=== PATIENT | female | born 1975 | race Caucasian/White ===

== ENCOUNTER → 2020-12-08 | Outpatient (CLI) | payer OTHER ==
--- NOTE | 2020-12-10 23:18 | ECWPNPC ---
PATIENT NAME: KAL URRUTIA : 1975 GENDER: FEMALE VISIT DATE: 12/08/2020 DISCHARGE DATE: 12/08/20 1355 VISIT LOCKED DATE TIME: PHYSICIAN: ASPEN CORONA RESOURCE: ASPEN CORONA REASON FOR APPOINTMENT 1. BACK/NECK/HEADACHES HISTORY OF PRESENT ILLNESS DEPRESSION SCREENING: PHQ-9 LITTLE INTEREST OR PLEASURE IN DOING THINGSSEVERAL DAYS FEELING DOWN, DEPRESSED, OR HOPELESSNEARLY EVERY DAY TROUBLE FALLING OR STAYING ASLEEP, OR SLEEPING TOO MUCHSEVERAL DAYS FEELING TIRED OR HAVING LITTLE ENERGYNEARLY EVERY DAY POOR APPETITE OR OVEREATING SEVERAL DAYS FEELING BAD ABOUT YOURSELF-OR THAT YOU ARE A FAILURE OR HAVE LET YOURSELF OR YOUR FAMILY DOWN NEARLY EVERY DAY TROUBLE CONCENTRATING ON THINGS, SUCH READING THE NEWSPAPER OR WATCHING TELEVISION NOT AT ALL MOVING OR SPEAKING SO SLOWLY THAT OTHER PEOPLE COULD HAVE NOTICED. OR THE OPPOSITE- BEING SO FIDGETY OR RESTLESS THAT YOU HAVE BEEN MOVING AROUND A LOT MORE THAN USUALNOT AT ALL THOUGHTS THAT YOU WOULD BE BETTER OFF , OR OF HURTING YOURSELF IN SOME WAY?NEARLY EVERY DAY(CONSIDER SUICIDE ASSESSMENT RISK) TOTAL SCORE:15 INTERPRETATIONMODERATELY SEVERE DEPRESSION PHQ-2 (2015 EDITION) LITTLE INTEREST OR PLEASURE IN DOING THINGS?MORE THAN HALF THE DAYS FEELING DOWN, DEPRESSED, OR HOPELESS?NEARLY EVERY DAY TOTAL SCORE5 GENERAL: 45-YEAR-OLD FEMALE BEING REFERRED BY FOR NECK AND UPPER BACK PAIN. ACCOMPANIED IN THE EXAM ROOM WITH HER SIGNIFICANT OTHER. STATES THAT PATIENT DOES NOT REMEMBER THINGS SO IT WOULD BE HARD FOR HER TO RELAY INFORMATION ON TREATMENT PLAN. 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 PAIN RADIATES FROM UPPER BACK AND NECK INTO A HEADACHE. STATES HEADACHES ARE SEVERE AT TIMES. CURRENTLY USING CYCLOBENZAPRINE DAILY NECESSARY FOR PAIN. ALSO TAKING TRAMADOL IF NEEDED FOR SEVERE PAIN EPISODES BUT SHE RARELY TAKES THESE MEDICATIONS. PAIN IS AGGRAVATED BY RANGE OF JOINT MOTION OF HER NECK OR USE OF HER ARMS. REPORTS CONSTANT BURNING PAIN IN HER NECK AND UPPER BACK REGION. DENIES BOWEL OR BLADDER INCONTINENCE. REPORTING SOME WEIGHT GAIN OVER THE PAST FEW MONTHS BUT DENIES SUDDEN WEIGHT LOSS OR ILLNESS. - - -. FALL RISK SCREENING: SCREENING :NO FALLS REPORTED IN THE LAST YEAR PAIN SCREENING: PATIENT HAS A COMPLAINT OF ACUTE OR CHRONIC PAIN :YES LOCATION OF PAIN:HEAD, MID BACK INTENSITY OF PAIN (SCALE OF 1 TO 10):8 WHAT DOES YOUR PAIN FEEL LIKE:ACHING, TENDER DURATION:CONTINOUS, CONSTANT, ALL DAY PAIN IS INCREASED BY:ACTIVITIES PAIN IS DECREASED BY:USE OF PAIN MEDICATIONS NURSING NOTE: - - -. PAIN CENTER INTAKE QUESTIONS: DO YOU HAVE A HISTORY OF MRSA? :NO DO YOU TAKE A BLOOD THINNERS? :NO DO YOU HAVE ANY BLEEDING DISORDERS? :NO ANY NEW NUMBNESS OR WEAKNESS IN YOUR LEGS OR ARMS? :NO ANY PACEMAKER,DEFIBRILLATOR, OR DORSAL COLUMN STIMULATOR? :NO DO YOU HAVE ANY RASHES OR OPEN SORES? :NO ARE YOU ALLERGIC TO IV DYE? :NO ARE YOU DIABETIC? :NO ANY NEW PROBLEMS WITH YOUR MEDICATIONS? :NO HAVE YOU RECEIVED A VACCINE IN THE PAST 30 DAYS? :NO DO YOU PLAN TO RECEIVE A VACCINE IN THE NEXT 21 DAYS? :YES IF SO WHAT VACCINE AND WHEN? COVID 12/12/2020 DO YOU NEED ANY PRESCRIPTION? :NO DO YOU TAKE ANY IMMUNOSUPPRESSIVE MEDICATIONS? :NO CURRENT MEDICATIONS TAKING CYCLOBENZAPRINE HCL 10 MG TABLET 1 TABLET AT BEDTIME NEEDED ORALLY ONCE A DAY TAKING GABAPENTIN 600 MG TABLET 1 TABLET ORALLY ONCE A DAY TAKING GNP LANSOPRAZOLE 15 MG CAPSULE DELAYED RELEASE 1 CAPSULE BEFORE A MEAL ORALLY ONCE A DAY TAKING SERTRALINE HCL 100 MG TABLET 1 TABLET ORALLY ONCE A DAY TAKING TRAZODONE HCL 100 MG TABLET 1 TABLET AT BEDTIME ORALLY ONCE A DAY TAKING IBUPROFEN 800 MG TABLET 1 TABLET WITH FOOD OR MILK NEEDED ORALLY THREE TIMES A DAY TAKING ALBUTEROL SULFATE 108 (90 BASE) MCG/ACT AEROSOL POWDER BREATH ACTIVATED 1 PUFF NEEDED INHALATION EVERY 4 HRS TAKING TRAMADOL HCL 5 MG/ML SOLUTION 5 ML NEEDED ORALLY ONCE A DAY MEDICATION LIST REVIEWED AND RECONCILED WITH THE PATIENT PAST MEDICAL HISTORY ASTHMA DEPRESSION OVERANXIOUS DISODER CERVICAL CANCER DORSOPATH LOW BACK MUSCLE SPASM BACK ALLERGIES N.K.D.A. SURGICAL HISTORY CERVICAL CANCER COLON PROLAPSE FAMILY HISTORY FATHER: MOTHER: ALIVE SON(S): ALIVE 2 SON(S) - HEALTHY. SOCIAL HISTORY GENERAL: TOBACCO USE ARE YOU A:CURRENT SMOKER HOW MANY CIGARETTES A DAY DO YOU SMOKE?5 OR LESS PATIENT COUNSELED ON THE DANGERS OF TOBACCO USE AND URGED TO QUIT:12/08/2020 LATEX QUESTIONNAIRE LATEX ALLERGY : HAVE YOU EVER DEVELOPED ANY TYPE OF REACTION AFTER HANDLING LATEX PRODUCTS SUCH RUBBER GLOVES, CONDOMS, DIAPHRAGMS, BALLOONS, SOCKS, OR UNDERWEAR?NO LATEX ALLERGY : HAVE YOU EVER DEVELOPED ANY TYPE OF REACTION DURING OR AFTER DENTAL APPOINTMENT, VAGINAL/RECTAL EXAMINATION, SURGICAL PROCEDURE, OR ANY OTHER EXPOSURE?NO LATEX RISK : HAVE YOU EVER HAD ANY DIFFICULTY BREATHING OR HIVES AFTER EATING OR HANDLING ANY FRUITS, OR VEGETABLES; SUCH KIWI, BANANAS, STONE FRUITS, OR CHESTNUTSNO LATEX RISK : DO YOU HAVE A PREVIOUS PERSONAL HISTORY OF MORE THAN NINE SURGERIES, SPINA BIFIDA, OR REPEATED CATHERIZATIONS? NO LATEX RISK : ARE YOU FREQUENTLY EXPOSED TO LATEX PRODUCTS IN YOUR OCCUPATION?NO DATE ASKED : 12/08/2020 ALCOHOL USE: NO. RECREATIONAL DRUG USE DRUG USE?NO LANGUAGE LANGUAGES SPOKEN:CROATIAN LEARNING BARRIERS / SPECIAL NEEDS BARRIERS TO LEARNING?NO HEARING IMPAIRED?NO VISION IMPAIRED?YES :CORRECTIVE LENSES COGNITIVELY IMPAIRED?NO READINESS TO LEARN?YES LEARNING PREFERENCES?YES :DEMONSTRATION/VERBAL INSTRUCTION LEARNING CAPABILITIES PRESENT?YES EMOTIONAL BARRIERS?NO SPECIAL DEVICES?NO LOFT PATTERNMAKER NEEDED?NO DOMESTIC VIOLENCE DO YOU FEEL SAFE IN YOUR ENVIRONMENT?YES HOSPITALIZATION/MAJOR DIAGNOSTIC PROCEDURE SEE ABOVE REVIEW OF SYSTEMS CONSTITUTIONAL: ANY RECENT FEVER NO . CHILLS NO . WEIGHT CHANGE OF UNKNOWN REASONS NO . GASTROENTEROLOGY: NEW UNEXPLAINABLE CHANGES IN BOWEL CONTROL NO . CONSTIPATION NO . GENITOURINARY: ANY NEW CHANGE IN BLADDER CONTROL? NO . NEUROLOGY: NEW ONSET DIZZINESS OR NEUROLOGICAL CHANGES NOT MENTIONED NO . NEW NUMBNESS OR PAIN PATTERNS NOT MENTIONED AND PERTINENT TO TODAY'S VISIT NO . CARDIOLOGY: NEW CHEST PRESSURE NO . NEW CHEST PAIN NO . RESPIRATORY: UNEXPLAINABLE COUGH NO . NEW SHORTNESS OF BREATH NO . VITAL SIGNS WT 216.0 LBS, HT 52 IN, BMI 56.16 INDEX, BP 131/86 MM HG, HR 71 /MIN, RR 18 /MIN, TEMP 96.0 F, OXYGEN SAT % 98%, SAFE IN ENV? (Y/N) YES, NA INITIALS AW 1308T.YAMILE KOROMA. EXAMINATION GENERAL EXAMINATION: GENERALNO ACUTE DISTRESS, WELL NOURISHED AND HYDRATED, ACCOMPANIED IN EXAM ROOM WITH SIGNIFICANT OTHER. PSYCHAPPROPRIATE MOOD AND AFFECT . FACE:UNREMARKABLE. NECK:NO LYMPHADENOPATHY, SUPPLE. LUNGS:CLEAR TO AUSCULTATION BILATERALLY, NO WHEEZES, RHONCHI, RALES. HEART:NO MURMURS, REGULAR RATE AND RHYTHM. MUSCULOSKELETAL: TRIGGER POINTS: ELICITED OVER NECK REGION TRAPEZIUS AND MID SCAPULAR. INCREASE IN PAIN IS NOTED WITH RANGE OF JOINT MOTION OF THE NECK OR USE OF HER ARMS.. DIAGNOSTIC TESTS REVIEWEDCT SCAN OF THORACIC AND CERVICAL IS REVIEWED . ASSESSMENTS MYALGIA, OTHER SITE - M79.18 (PRIMARY) TREATMENT MYALGIA, OTHER SITE NOTES: TRIGGER POINT INJECTIONS BILATERAL NECK AND UPPER BACK WITHOUT STEROIDS. REFERRAL TO:PHYSICAL THERAPIST REASON:2XWK X 6 WKS,MASSAGE,MYOFASCIAL RELEASE PROCEDURE CODES FA211 ESTABILISHED PATIENT [facility] CHARGE DISPOSITION & COMMUNICATION FOLLOW UP POST PROCEDURE (REASON: FOLLOW-UP PT/TRIGGER POINT INJECTIONS BILATERAL NECK AND UPPER BACK WITHOUT STEROIDS) ELECTRONICALLY SIGNED BY FAITH CASTILLO ON 12/10/2020 AT 08:00 PM EST DISCLAIMER : THIS IS A VISIT SUMMARY EXTRACTED FROM THE [employer] CHART. IT IS NOT A COPY OF THE [employer] PROGRESS NOTE. DEEJAY
== END ==
LOC: M PAIN 13:00
PROVIDERS: ATTEND Nurse Practitioner Family
DX: M79.18 Myalgia, other site (principal); J45.909 Unspecified asthma, uncomplicated; F32.9 Major depressive disorder, single episode, unspecified; F17.210 Nicotine dependence, cigarettes, uncomplicated; Z79.891 Long term (current) use of opiate analgesic; Z79.899 Other long term (current) drug therapy

== ENCOUNTER → 2020-12-24 | Outpatient (CLI) | payer OTHER | LOC: M LABSMTC 11:06 | PROVIDERS: ATTEND Anesthesiology | DX: Z20.822 Contact with and (suspected) exposure to COVID-19 (principal) ==

== ENCOUNTER → 2020-12-29 | Outpatient (CLI) | payer OTHER ==
[~2020-12-29] MED LIST: BUPIVACAINE HCL 0.25% 10ML VIAL As Ordered ONE; BUPIVACAINE HCL 0.25% 30ML VIAL As Ordered ONE; TRIAMCINOLONE ACETONIDE SUSP 40 MG/ML VIAL (J3301) As Ordered ONE; diazePAM 5MG TABLET As Ordered ONE
--- NOTE | 2021-01-03 02:06 | ECWPNPC ---
PATIENT NAME: KAL URRUTIA : 1975 GENDER: FEMALE VISIT DATE: 12/29/2020 DISCHARGE DATE: 12/29/20 1027 VISIT LOCKED DATE TIME: PHYSICIAN: MARY LOMBARDO MD RESOURCE: MARY LOMBARDO MD REASON FOR APPOINTMENT 1. TRIGGER POINT INJECTIONS BILATERAL NECK AND BILATERAL THORACIC HISTORY OF PRESENT ILLNESS GENERAL: -. FALL RISK SCREENING: SCREENING : NO FALLS REPORTED IN THE LAST YEAR. PAIN SCREENING: PATIENT HAS A COMPLAINT OF ACUTE OR CHRONIC PAIN :YES LOCATION OF PAIN:NECK, BOTH SHOULDERS, MID BACK INTENSITY OF PAIN (SCALE OF 1 TO 10):8 WHAT DOES YOUR PAIN FEEL LIKE:ACHING, BURNING, CONTINOUS, SHARP, STABBING, TENDER, THROBBING, SORE, SHOOTING OCC. SHARP, STABBING, SHOOTING DURATION:CONTINOUS, CONSTANT DOESN'T WAKE HER AT NIGHT BECAUSE SHE TAKES SO MANY MEDS THAT THE KNOCK HER OUT PAIN IS INCREASED BY:ACTIVITIES, PROLONGED STANDING PROLONGED SITTING AND PROLONGED LYING PAIN IS DECREASED BY:USE OF PAIN MEDICATIONS HEAT, REST AND IF SEVERE SHE TAKES A TRAMADOL PAIN HAS INTERFERED WITH THE FOLLOWING: EVERYTHING NURSING NOTE: -. PAIN CENTER INTAKE QUESTIONS: DO YOU HAVE A HISTORY OF MRSA? :NO DO YOU TAKE A BLOOD THINNERS? :NO DO YOU HAVE ANY BLEEDING DISORDERS? :NO ANY NEW NUMBNESS OR WEAKNESS IN YOUR LEGS OR ARMS? :NO ANY PACEMAKER,DEFIBRILLATOR, OR DORSAL COLUMN STIMULATOR? :NO DO YOU HAVE ANY RASHES OR OPEN SORES? :NO ARE YOU ALLERGIC TO IV DYE? :NO ARE YOU DIABETIC? :NO ANY NEW PROBLEMS WITH YOUR MEDICATIONS? :NO HAVE YOU RECEIVED A VACCINE IN THE PAST 30 DAYS? :NO DO YOU PLAN TO RECEIVE A VACCINE IN THE NEXT 21 DAYS? :NO DO YOU TAKE ANY IMMUNOSUPPRESSIVE MEDICATIONS? :NO ANY HISTORY OF SEIZURES? :NO ANY HISTORY OF CARDIAC ISSUES OR EVENTS? :NO DO YOU HAVE ANY KIDNEY OR LIVER DISEASE? :NO DO YOU HAVE SLEEP APNEA? :NO ANY RECENT HEAD INJURY? :NO DO YOU HAVE ANY NEW INFECTIONS? :NO IS THERE A CHANCE YOU COULD BE ? :NO ARE YOU BREAST FEEDING? :NO WHEN DID YOU LAST EAT? : 12/28/20 1800 WHEN DID YOU LAST DRINK? : 0715 WHAT DID YOU LAST DRINK? : ELOINA KIRA NAME OF PERSON DRIVING YOU HOME? : TJ DO YOU HAVE ANY OTHER QUESTIONS OR CONCERNS? : NONE CURRENT MEDICATIONS TAKING CYCLOBENZAPRINE HCL 10 MG TABLET 1 TABLET AT BEDTIME NEEDED ORALLY ONCE A DAY, NOTES: 629 TAKING GABAPENTIN 800 MG TABLET 1 TABLET ORALLY ONCE A DAY TAKING GNP LANSOPRAZOLE 15 MG CAPSULE DELAYED RELEASE 1 CAPSULE BEFORE A MEAL ORALLY ONCE A DAY TAKING SERTRALINE HCL 100 MG TABLET 1 TABLET ORALLY ONCE A DAY TAKING TRAZODONE HCL 100 MG TABLET 1 TABLET AT BEDTIME ORALLY ONCE A DAY, NOTES: 12/28/20 2200 TAKING IBUPROFEN 800 MG TABLET 1 TABLET WITH FOOD OR MILK NEEDED ORALLY THREE TIMES A DAY, NOTES: 629 TAKING ALBUTEROL SULFATE 108 (90 BASE) MCG/ACT AEROSOL POWDER BREATH ACTIVATED 1 PUFF NEEDED INHALATION EVERY 4 HRS TAKING TRAMADOL HCL 5 MG/ML SOLUTION 5 ML NEEDED ORALLY ONCE A DAY, NOTES: OVER A WEEK MEDICATION LIST REVIEWED AND RECONCILED WITH THE PATIENT PAST MEDICAL HISTORY ASTHMA DEPRESSION OVERANXIOUS DISODER CERVICAL CANCER DORSOPATH LOW BACK MUSCLE SPASM BACK NECK AND SHOULDER PAIN ALLERGIES N.K.D.A. SURGICAL HISTORY CERVICAL CANCER COLON PROLAPSE SOCIAL HISTORY GENERAL: TOBACCO USE ARE YOU A:CURRENT SMOKER ARE YOU INTERESTED IN QUITTING?NOT READY TO QUIT HOW MANY CIGARETTES A DAY DO YOU SMOKE?- PATIENT COUNSELED ON THE DANGERS OF TOBACCO USE AND URGED TO QUIT:12/28/2020 LATEX QUESTIONNAIRE LATEX ALLERGY : HAVE YOU EVER DEVELOPED ANY TYPE OF REACTION AFTER HANDLING LATEX PRODUCTS SUCH RUBBER GLOVES, CONDOMS, DIAPHRAGMS, BALLOONS, SOCKS, OR UNDERWEAR?NO LATEX ALLERGY : HAVE YOU EVER DEVELOPED ANY TYPE OF REACTION DURING OR AFTER DENTAL APPOINTMENT, VAGINAL/RECTAL EXAMINATION, SURGICAL PROCEDURE, OR ANY OTHER EXPOSURE?NO LATEX RISK : HAVE YOU EVER HAD ANY DIFFICULTY BREATHING OR HIVES AFTER EATING OR HANDLING ANY FRUITS, OR VEGETABLES; SUCH KIWI, BANANAS, STONE FRUITS, OR CHESTNUTSNO LATEX RISK : DO YOU HAVE A PREVIOUS PERSONAL HISTORY OF MORE THAN NINE SURGERIES, SPINA BIFIDA, OR REPEATED CATHERIZATIONS? NO LATEX RISK : ARE YOU FREQUENTLY EXPOSED TO LATEX PRODUCTS IN YOUR OCCUPATION?NO DATE ASKED : 12/28/2020 ALCOHOL USE: NO. ALCOHOL SCREENING DID YOU HAVE A DRINK CONTAINING ALCOHOL IN THE PAST YEAR?YES HOW OFTEN DID YOU HAVE A DRINK CONTAINING ALCOHOL IN THE PAST YEAR?MONTHLY OR LESS (1 POINT) HOW MANY DRINKS DID YOU HAVE ON A TYPICAL DAY WHEN YOU WERE DRINKING IN THE PAST YEAR?1 OR 2 (0 POINTS) HOW OFTEN DID YOU HAVE SIX OR MORE DRINKS ON ONE OCCASION IN THE PAST YEAR?NEVER (0 POINTS) POINTS1 INTERPRETATIONNEGATIVE RECREATIONAL DRUG USE DRUG USE?NO LANGUAGE LANGUAGES SPOKEN:ITALIAN EDUCATION LEVEL OF EDUCATION:HIGH SCHOOL LEARNING BARRIERS / SPECIAL NEEDS BARRIERS TO LEARNING?YES COMMENTS SOMETIMES HAS TROUBLE REMEMBERING THINGS HEARING IMPAIRED?NO VISION IMPAIRED?YES :CORRECTIVE LENSES COGNITIVELY IMPAIRED?NO READINESS TO LEARN?YES LEARNING PREFERENCES?YES :DEMONSTRATION/VERBAL INSTRUCTION LEARNING CAPABILITIES PRESENT?YES EMOTIONAL BARRIERS?NO SPECIAL DEVICES?NO LABORATORY GENETICIST NEEDED?NO DOMESTIC VIOLENCE DO YOU FEEL SAFE IN YOUR ENVIRONMENT?YES ADVANCE DIRECTIVE ADVANCE DIRECTIVE DISCUSSED WITH PATIENT: HAS LIVING WILL, DECLINES INFORMATION ON HCP AT THIS TIME HOSPITALIZATION/MAJOR DIAGNOSTIC PROCEDURE SEE ABOVE VITAL SIGNS WT 214.8 LBS, HT 52 IN, BMI 55.84 INDEX, BP 120/74 MM HG, HR 85 /MIN, RR 18 /MIN, TEMP 97.3 F, OXYGEN SAT % 97%, SAFE IN ENV? (Y/N) YES, NA INITIALS SC 09:26, REVIEWED BY: APA. FREDRICK RN. EXAMINATION GENERAL EXAMINATION: THE PATIENT IS ALERT, ORIENTED TIMES THREE AND COOPERATIVE. LUNGS ARE CLEAR TO AUSCULTATION. HEART SHOWS REGULAR RHYTHM, NO MURMURS AND NO GALLOPS. ASSESSMENTS MYALGIA, OTHER SITE - M79.18 (PRIMARY) TREATMENT MYALGIA, OTHER SITE MEDICATION: VALIUM TAB 5MG ORALLY (DIAZEPAM)KARINE CEDENO 12/29/2020 9:34:38 AM > VERIFIED TREVOR ALCALA 12/29/2020 9:36:12 AM > ADMINISTERED COMPLETION OF PROCEDURAL VISIT WHEN MEETS CRITERIAPETREVOR BARGER 12/29/2020 10:27:12 AM > CRITERIA MET OTHERS NOTES: 12/28/20 1203 PRE-PROCEDURE CALL COMPLETED. Verna ORTIZ RN. PROCEDURES PAIN NURSING RECORD PROCEDURE IN ROOM 0910, PHYSICIAN IN ROOM 1004, START 1008, FINISH 1012, PHYSICIAN OUT OF ROOM 1014, OUT OF ROOM 1027, ECG N/A, PATIENT SHIELDED N/A, SAFETY STRAP N/A, PREP ALCOHOL DR. LOMBARDO, DRESSING TEGADERM Verna ALCALA, DWAINE LOC: TREVOR ALCALA 12/29/2020 10:09:46 AM > , 1. ALERT, ORIENTED RESP: TREVOR ALCALA 12/29/2020 10:09:49 AM > , 1. REGULAR, NO DYSPNEA COLOR: TREVOR ALCALA 12/29/2020 10:09:52 AM > , 1. PINK SKIN: TREVOR ALCALA 12/29/2020 10:09:55 AM > , 1. WARM, DRY POSITION: TREVOR ALCALA 12/29/2020 10:10:04 AM > , 5. SITTING VITALS: TREVOR ALCALA 12/29/2020 10:24:56 AM > 121/73, 83, 18, 94% COMPLETION OF PROCEDURE APPOINTMENT: POST PAIN 3, DRESSING SITE DRY AND INTACT, IV N/A, GAIT STEADY, TEACHING COMPLETED, PATIENT ACKNOWLEDGES UNDERSTANDING YES, PROCEDURE APPOINTMENT COMPLETED AT 1027 BY: Verna ALCALA RN PN TRIGGER POINT INJECTION WITH STEROIDS PRE PROCEDURE DIAGNOSIS 1. MYALGIA 2. PAIN AT BILATERAL NECK AREA AND BILATERAL THORACIC AREA POST PROCEDURE DIAGNOSIS 1. MYALGIA 2. PAIN AT BILATERAL NECK AREA AND BILATERAL THORACIC AREA PROCEDURE TRIGGER POINT INJECTION AT BILATERAL NECK AREA AND BILATERAL THORACIC AREA SURGEON DR. MARY LOMBARDO TIMBER TREATMENT PLANT OPERATOR NONE ANESTHESIA LOCAL PRE PROCEDURE NOTE THE PATIENT HAS A HISTORY OF CHRONIC PAIN AT THE RIGHT AND LEFT NECK AREA AND RIGHT AND LEFT THORACIC AREA. I EVALUATED THE PATIENT AND REVIEWED THE CHART. THERE IS EVIDENCE OF BANDS OF TISSUE WITH RESTRICTION OF MOVEMENT AND PRESENCE OF TRIGGER POINT AT THE RIGHT AND LEFT NECK AREA AND RIGHT AND LEFT THORACIC AREA. I WENT OVER THE RISKS, ALTERNATIVES, AND BENEFITS ASSOCIATED WITH THIS PROCEDURE. THE PATIENT WOULD LIKE TO PROCEED AND GIVE CONSENT TO PERFORMED THE PROCEDURE. THE PATIENT DENIES UNEXPLAINABLE WEIGHT LOSS, FEVER, CHILLS, OR NEW CHANGES IN URINARY OR BOWEL CONTROL. THE PATIENT IS COVID-19 NEGATIVE DESCRIPTION OF PROCEDURE THE PATIENT WAS BROUGHT TO THE PROCEDURE ROOM AND PLACED IN THE SITTING POSITION. THE AREA WAS CLEANED WITH ALCOHOL. THE PROCEDURE WAS DONE USING ASEPTIC STERILE TECHNIQUE. A TIMEOUT WAS PERFORMED WHERE THE CONSENTED SITE WAS VERIFIED WITH EVERYONE IN THE ROOM. USING A 25-GAUGE NEEDLE, TRIGGER POINTS WERE INJECTED AT THE RIGHT AND LEFT NECK AREA AND RIGHT AND LEFT THORACIC AREA WITH A TOTAL OF 40 ML OF BUPIVACAINE 0.25% AND KENALOG 40 MG. THE MEDICATIONS WERE VERIFIED WITH THE NURSE. THERE WAS NO EVIDENCE OF BLOOD OR PARESTHESIA DURING THE PROCEDURE. THE PATIENT WAS SENT TO THE RECOVERY ROOM. THE PATIENT WAS MOVING THE EXTREMITIES AND DOING WELL. THERE WERE NO COMPLICATIONS DURING THE PROCEDURE. ESTIMATED BLOOD LOSS WAS LESS THAN 5 ML POST PROCEDURE NOTE THE PROCEDURE DONE WAS DISCUSSED WITH THE PATIENT. THE PATIENT WILL BE SEEN IN A FOLLOW UP IN THE NEXT FEW WEEKS. I AM LOOKING FOR LONG LASTING PAIN RELIEF FOR THE PATIENT WITH THIS INTERVENTION. INSTRUCTIONS WERE GIVEN, QUESTIONS WERE ANSWERED, AND THE PATIENT EXPRESSED UNDERSTANDING AND AGREES WITH THE PLAN. I, HUSSEIN ZAPATA, DOCUMENTED THE ABOVE INFORMATION ACTING A SCRIBE FOR DR. LOMBARDO. I HAVE REVIEWED THE ABOVE DOCUMENT, WRITTEN BY HUSSEIN ZAPATA, LABORER ORCHARD, AND I VERIFY THAT IT IS ACCURATE PROCEDURE CODES 88302 INJECT TRIGGER POINTS 3/> DISPOSITION & COMMUNICATION FOLLOW UP FOLLOW UP WITH CHILD CARE ASSISTANT (REASON: POST TRIGGER POINT INJECTIONS BILATERAL NECK AND BILATERAL THORACIC ) ELECTRONICALLY SIGNED BY MARY LOMBARDO MD, ON 01/02/2021 AT 11:40 AM EDT DISCLAIMER : THIS IS A VISIT SUMMARY EXTRACTED FROM THE [employer] CHART. IT IS NOT A COPY OF THE [employer] PROGRESS NOTE. DEEJAY
== END ==
LOC: M PAIN 09:15
PROVIDERS: ATTEND Anesthesiology
DX: M79.18 Myalgia, other site (principal); J45.909 Unspecified asthma, uncomplicated; F32.9 Major depressive disorder, single episode, unspecified; F17.210 Nicotine dependence, cigarettes, uncomplicated; Z79.891 Long term (current) use of opiate analgesic; Z79.899 Other long term (current) drug therapy
CPT/HCPCS: 20553; J3301

== ENCOUNTER → 2021-01-12 | Outpatient (CLI) | payer OTHER ==
--- NOTE | 2021-01-18 04:59 | ECWPNPC ---
PATIENT NAME: KAL URRUTIA : 1975 GENDER: FEMALE VISIT DATE: 01/12/2021 DISCHARGE DATE: 01/12/21 1444 VISIT LOCKED DATE TIME: PHYSICIAN: ASPEN COROAN RESOURCE: ASPEN CORONA REASON FOR APPOINTMENT 1. POST TRIGGER POINT INJECTIONS BILATERAL NECK AND UPPER BACK W/O STEROID HISTORY OF PRESENT ILLNESS GENERAL: HERE FOR POST PROCEDURE FOLLOW-UP. HAD BILATERAL NECK AND THORACIC TRIGGER POINT INJECTIONS ON 12/29/2020. REPORTING MARKED REDUCTION IN PAIN BUT IT ONLY LASTED FOR 2 DAYS POSTPROCEDURE. CONTINUES TO HAVE HIGH LEVELS OF PAIN AND STIFFNESS IN HER NECK AND UPPER BACK REGION. DISCUSSED PHYSICAL THERAPY FOR MYOFASCIAL RELEASE. -. FALL RISK SCREENING: SCREENING : NO FALLS REPORTED IN THE LAST YEAR. PAIN SCREENING: PATIENT HAS A COMPLAINT OF ACUTE OR CHRONIC PAIN :YES LOCATION OF PAIN:NECK, MID BACK INTENSITY OF PAIN (SCALE OF 1 TO 10):8 WHAT DOES YOUR PAIN FEEL LIKE:ACHING, SHOOTING DURATION:CONTINOUS, CONSTANT, ALL DAY PAIN IS INCREASED BY:ACTIVITIES PAIN IS DECREASED BY:OTHERS HEAT NURSING NOTE: -. PAIN CENTER INTAKE QUESTIONS: DO YOU HAVE A HISTORY OF MRSA? :NO DO YOU TAKE A BLOOD THINNERS? :NO DO YOU HAVE ANY BLEEDING DISORDERS? :NO ANY NEW NUMBNESS OR WEAKNESS IN YOUR LEGS OR ARMS? :NO ANY PACEMAKER,DEFIBRILLATOR, OR DORSAL COLUMN STIMULATOR? :NO DO YOU HAVE ANY RASHES OR OPEN SORES? :NO ARE YOU ALLERGIC TO IV DYE? :NO ARE YOU DIABETIC? :NO ANY NEW PROBLEMS WITH YOUR MEDICATIONS? :NO HAVE YOU RECEIVED A VACCINE IN THE PAST 30 DAYS? :NO DO YOU PLAN TO RECEIVE A VACCINE IN THE NEXT 21 DAYS? :NO DO YOU NEED ANY PRESCRIPTION? :NO DO YOU TAKE ANY IMMUNOSUPPRESSIVE MEDICATIONS? :NO CURRENT MEDICATIONS TAKING CYCLOBENZAPRINE HCL 10 MG TABLET 1 TABLET AT BEDTIME NEEDED ORALLY ONCE A DAY TAKING GABAPENTIN 800 MG TABLET 1 TABLET ORALLY ONCE A DAY TAKING GNP LANSOPRAZOLE 15 MG CAPSULE DELAYED RELEASE 1 CAPSULE BEFORE A MEAL ORALLY ONCE A DAY TAKING SERTRALINE HCL 100 MG TABLET 1 TABLET ORALLY ONCE A DAY TAKING TRAZODONE HCL 100 MG TABLET 1 TABLET AT BEDTIME ORALLY ONCE A DAY TAKING IBUPROFEN 800 MG TABLET 1 TABLET WITH FOOD OR MILK NEEDED ORALLY THREE TIMES A DAY TAKING ALBUTEROL SULFATE 108 (90 BASE) MCG/ACT AEROSOL POWDER BREATH ACTIVATED 1 PUFF NEEDED INHALATION EVERY 4 HRS TAKING TRAMADOL HCL 5 MG/ML SOLUTION 5 ML NEEDED ORALLY ONCE A DAY, NOTES: OVER A WEEK MEDICATION LIST REVIEWED AND RECONCILED WITH THE PATIENT PAST MEDICAL HISTORY ASTHMA DEPRESSION OVERANXIOUS DISODER CERVICAL CANCER DORSOPATH LOW BACK MUSCLE SPASM BACK NECK AND SHOULDER PAIN ALLERGIES N.K.D.A. SOCIAL HISTORY GENERAL: TOBACCO USE ARE YOU A:CURRENT SMOKER HOW MANY CIGARETTES A DAY DO YOU SMOKE?11-20 ARE YOU INTERESTED IN QUITTING?NOT READY TO QUIT PATIENT COUNSELED ON THE DANGERS OF TOBACCO USE AND URGED TO QUIT:12/28/2020 LATEX QUESTIONNAIRE LATEX ALLERGY : HAVE YOU EVER DEVELOPED ANY TYPE OF REACTION AFTER HANDLING LATEX PRODUCTS SUCH RUBBER GLOVES, CONDOMS, DIAPHRAGMS, BALLOONS, SOCKS, OR UNDERWEAR?NO LATEX ALLERGY : HAVE YOU EVER DEVELOPED ANY TYPE OF REACTION DURING OR AFTER DENTAL APPOINTMENT, VAGINAL/RECTAL EXAMINATION, SURGICAL PROCEDURE, OR ANY OTHER EXPOSURE?NO LATEX RISK : HAVE YOU EVER HAD ANY DIFFICULTY BREATHING OR HIVES AFTER EATING OR HANDLING ANY FRUITS, OR VEGETABLES; SUCH KIWI, BANANAS, STONE FRUITS, OR CHESTNUTSNO LATEX RISK : DO YOU HAVE A PREVIOUS PERSONAL HISTORY OF MORE THAN NINE SURGERIES, SPINA BIFIDA, OR REPEATED CATHERIZATIONS? NO LATEX RISK : ARE YOU FREQUENTLY EXPOSED TO LATEX PRODUCTS IN YOUR OCCUPATION?NO DATE ASKED : 01/12/2021 ALCOHOL USE: NO. ALCOHOL SCREENING DID YOU HAVE A DRINK CONTAINING ALCOHOL IN THE PAST YEAR?YES HOW OFTEN DID YOU HAVE SIX OR MORE DRINKS ON ONE OCCASION IN THE PAST YEAR?NEVER (0 POINTS) HOW MANY DRINKS DID YOU HAVE ON A TYPICAL DAY WHEN YOU WERE DRINKING IN THE PAST YEAR?1 OR 2 (0 POINTS) HOW OFTEN DID YOU HAVE A DRINK CONTAINING ALCOHOL IN THE PAST YEAR?MONTHLY OR LESS (1 POINT) POINTS1 INTERPRETATIONNEGATIVE RECREATIONAL DRUG USE DRUG USE?NO LANGUAGE LANGUAGES SPOKEN:AMHARIC EDUCATION LEVEL OF EDUCATION:HIGH SCHOOL LEARNING BARRIERS / SPECIAL NEEDS CHANGE FROM LAST VISIT?NO BARRIERS TO LEARNING?YES COMMENTS SOMETIMES HAS TROUBLE REMEMBERING THINGS HEARING IMPAIRED?NO VISION IMPAIRED?YES :CORRECTIVE LENSES COGNITIVELY IMPAIRED?NO READINESS TO LEARN?YES LEARNING PREFERENCES?YES :DEMONSTRATION/VERBAL INSTRUCTION LEARNING CAPABILITIES PRESENT?YES EMOTIONAL BARRIERS?NO SPECIAL DEVICES?NO SCHEDULE MANAGER NEEDED?NO DOMESTIC VIOLENCE DO YOU FEEL SAFE IN YOUR ENVIRONMENT?YES ADVANCE DIRECTIVE ADVANCE DIRECTIVE DISCUSSED WITH PATIENT: HAS LIVING WILL, DECLINES INFORMATION ON HCP AT THIS TIME REVIEW OF SYSTEMS CONSTITUTIONAL: ANY RECENT FEVER NO . CHILLS NO . WEIGHT CHANGE OF UNKNOWN REASONS NO . GASTROENTEROLOGY: NEW UNEXPLAINABLE CHANGES IN BOWEL CONTROL NO . CONSTIPATION NO . GENITOURINARY: ANY NEW CHANGE IN BLADDER CONTROL? NO . NEUROLOGY: NEW ONSET DIZZINESS OR NEUROLOGICAL CHANGES NOT MENTIONED NO . NEW NUMBNESS OR PAIN PATTERNS NOT MENTIONED AND PERTINENT TO TODAY'S VISIT NO . CARDIOLOGY: NEW CHEST PRESSURE NO . PATIENT DENIES NO . RESPIRATORY: UNEXPLAINABLE COUGH NO . NEW SHORTNESS OF BREATH NO . VITAL SIGNS WT 207 LBS, HT 52 IN, BMI 53.82 INDEX, BP 118/72 MM HG, HR 71 /MIN, RR 18 /MIN, TEMP 97.2 F, OXYGEN SAT % 95%, SAFE IN ENV? (Y/N) YEST.YAMILE KOROMA. EXAMINATION GENERAL EXAMINATION: GENERALNO ACUTE DISTRESS, WELL NOURISHED AND HYDRATED, ACCOMPANIED IN EXAM ROOM WITH SIGNIFICANT OTHER. PSYCHAPPROPRIATE MOOD AND AFFECT . FACE:UNREMARKABLE. NECK:NO LYMPHADENOPATHY, SUPPLE. LUNGS:CLEAR TO AUSCULTATION BILATERALLY, NO WHEEZES, RHONCHI, RALES. HEART:NO MURMURS, REGULAR RATE AND RHYTHM. MUSCULOSKELETAL: TRIGGER POINTS: ELICITED OVER NECK REGION TRAPEZIUS AND MID SCAPULAR. INCREASE IN PAIN IS NOTED WITH RANGE OF JOINT MOTION OF THE NECK OR USE OF HER ARMS.. DIAGNOSTIC TESTS REVIEWEDCT SCAN OF THORACIC AND CERVICAL IS REVIEWED . ASSESSMENTS OTHER CHRONIC PAIN - G89.29 (PRIMARY) MYALGIA, OTHER SITE - M79.18 TREATMENT OTHER CHRONIC PAIN PAIN PROCEDURE LOGDATE OF PROCEDURE1PROCEDURE:TRIGGER POINT INJECTION BILATERAL NECK AND BILATERAL THORACICAMOUNT OF PRE SEDATEVALIUM 5MGRESULT:IMPROVEMENT X2 DAYS REFERRAL TO:PHYSICAL THERAPIST REASON:2XWK X 6 WKS,MASSAGE,MYOFASCIAL RELEASE,STRETCHING PROCEDURE CODES [id number] ESTABILISHED PATIENT [facility] CHARGE DISPOSITION & COMMUNICATION FOLLOW UP 2 MONTHS (REASON: POST PT [id number]) ELECTRONICALLY SIGNED BY FAITH CASTILLO ON 01/17/2021 AT 04:14 PM EDT DISCLAIMER : THIS IS A VISIT SUMMARY EXTRACTED FROM THE [employer] CHART. IT IS NOT A COPY OF THE [employer] PROGRESS NOTE. DEEJAY
== END ==
LOC: M PAIN 14:00
PROVIDERS: ATTEND Nurse Practitioner Family
DX: G89.29 Other chronic pain (principal); M79.18 Myalgia, other site; J45.909 Unspecified asthma, uncomplicated; F32.9 Major depressive disorder, single episode, unspecified; F17.210 Nicotine dependence, cigarettes, uncomplicated; Z79.1 Long term (current) use of non-steroidal anti-inflammatories (NSAID); Z79.891 Long term (current) use of opiate analgesic; Z79.899 Other long term (current) drug therapy

== ENCOUNTER 2021-03-06 17:01 | Emergency (ER) | payer OTHER ==
[~2021-03-06] VITALS: Ht 160 cm; Wt 95.0 kg
[2021-03-06] MEDS ORDERED: IBUP80TA PO (17:15)
[2021-03-06] MEDS ORDERED: FAMO1TAB25 PO (17:15)
[2021-03-06] MEDS ORDERED: TRAZ-257 PO (17:15)
[2021-03-06] MEDS ORDERED: GABA800T4 PO (17:15)
[2021-03-06] MEDS ORDERED: VITA200048 PO (17:15)
[2021-03-06] MEDS ORDERED: SERT-141 PO (17:15)
--- NOTE | 2021-03-06 18:44 | REP ---
INDICATION: pain and swelling, r/o dvt. COMPARISON: None. TECHNIQUE: Right lower extremity duplex venous scanning. FINDINGS: The deep veins are anechoic and fully compressible from the groin to the popliteal fossa in the right lower extremity. Color flow imaging is homogeneous. Spectral Doppler interrogation demonstrates intact respiratory variation in flow and normal manual augmentation of flow. There is no evidence of deep vein thrombosis. There is a heterogeneous somewhat hypoechoic area in the right posterior popliteal soft tissues measuring 2.0 x 3.0 x 1.2 cm. This appears to be within the muscle. Florence's cyst versus intramuscular hematoma. IMPRESSION: Negative right lower extremity duplex venous ultrasound. No evidence of deep vein thrombosis. Possible Florence's cyst versus intramuscular hematoma in the posteromedial popliteal soft tissues as above, 3.0 cm in greatest diameter. <Electronically signed by Figueroa Hawkins > 03/06/21 [id number]
[2021-03-06] MEDS ORDERED: NAPR-837 PO (18:56)
[2021-03-06 19:21] VITALS: BP 109/69
== END 2021-03-06 19:31 | disposition home or self-care (01) ==
LOC: M ED 17:01
DX: S86.911A Strain of unspecified muscle(s) and tendon(s) at lower leg level, right leg, initial encounter (principal); W01.0XXA Fall on same level from slipping, tripping and stumbling without subsequent striking against object, initial encounter; Y92.89 Other specified places as the place of occurrence of the external cause; Y93.01 Activity, walking, marching and hiking; Y99.8 Other external cause status; K21.9 Gastro-esophageal reflux disease without esophagitis; F33.9 Major depressive disorder, recurrent, unspecified; F17.200 Nicotine dependence, unspecified, uncomplicated; Z79.899 Other long term (current) drug therapy

== ENCOUNTER → 2021-08-18 | Outpatient (CLI) | payer OTHER ==
[~2021-08-18] MED LIST changes: -BUPIVACAINE HCL 0.25% 10ML VIAL As Ordered ONE; -BUPIVACAINE HCL 0.25% 30ML VIAL As Ordered ONE; +FAMO10TA50 PO; +GABA800T4 PO; +IBUP80TA PO; +NAPR-837 PO; +SERT-141 PO; +TRAZ-257 PO; -TRIAMCINOLONE ACETONIDE SUSP 40 MG/ML VIAL (J3301) As Ordered ONE; +VITA200048 PO; -diazePAM 5MG TABLET As Ordered ONE
[2021-08-18 11:00] LABS: HEMATOCRIT 41.6 % (36.0-47.0); HEMOGLOBIN 13.8 g/dl (12.0-15.5); MEAN CORPUSCULAR HGB CONC 33.2 g/dl (32.0-36.5); MEAN CORPUSCULAR VOLUME 93.5 fl (80.0-96.0); PLATELET COUNT, AUTOMATED 216 10^3/uL (150-450); RED BLOOD COUNT 4.45 10^6/uL (4.00-5.40); WHITE BLOOD COUNT 10.7 10^3/uL (4.0-10.0)
[2021-08-18 11:31] LABS: ALBUMIN 3.4 GM/DL (3.2-5.2); ALT/SGPT 22 U/L (12-78); BILIRUBIN,TOTAL 0.3 MG/DL (0.2-1.0); BLOOD UREA NITROGEN 14 MG/DL (7-18); CALCIUM LEVEL 8.9 MG/DL (8.5-10.1); CARBON DIOXIDE LEVEL 29 MEQ/L (21-32); CHLORIDE LEVEL 108 MEQ/L (98-107); CHOLESTEROL LEVEL 223 MG/DL (<200); CHOLESTEROL RISK RATIO 7.689 (<5); CREATININE FOR GFR 0.81 MG/DL (0.55-1.30); FREE T3 2.4 PG/ML (2.2-4.0); FREE T4 0.75 NG/DL (0.76-1.46); GLOMERULAR FILTRATION RATE > 60.0 (>58); GLUCOSE, FASTING 113 MG/DL (70-100); HDL CHOLESTEROL 29 MG/DL (>40); LDL CHOLESTEROL 119 MG/DL (<100); MAGNESIUM LEVEL 1.6 MG/DL (1.8-2.4); NON-HDL-C 194 MG/DL; POTASSIUM SERUM 4.1 MEQ/L (3.5-5.1); SODIUM LEVEL 141 MEQ/L (136-145); TOTAL PROTEIN 7.1 GM/DL (6.4-8.2); TRIGLYCERIDES LEVEL 373 MG/DL (<150); URIC ACID 4.7 MG/DL (2.6-6.0)
[2021-08-20 12:24] LABS: TOTAL 25(OH) VITAMIN D 37.2 NG/ML (30.0-100.0)
== END ==
LOC: M LAB 10:12
PROVIDERS: ATTEND Registered Nurse
DX: Z13.21 Encounter for screening for nutritional disorder (principal); Z13.220 Encounter for screening for lipoid disorders; Z13.29 Encounter for screening for other suspected endocrine disorder; K21.9 Gastro-esophageal reflux disease without esophagitis

== ENCOUNTER → 2022-06-10 | Outpatient (CLI) | payer OTHER ==
[2022-06-10 12:29] LABS: HEMATOCRIT 40.8 % (36.0-47.0); HEMOGLOBIN 13.8 g/dl (12.0-15.5); MEAN CORPUSCULAR HEMOGLOBIN 30.5 pg (27.0-33.0); MEAN CORPUSCULAR HGB CONC 33.8 g/dl (32.0-36.5); MEAN CORPUSCULAR VOLUME 90.3 fl (80.0-96.0); PLATELET COUNT, AUTOMATED 194 10^3/uL (150-450); RED BLOOD COUNT 4.52 10^6/uL (4.00-5.40); WHITE BLOOD COUNT 9.9 10^3/uL (4.0-10.0)
[2022-06-10 13:13] LABS: ALBUMIN 3.5 GM/DL (3.2-5.2); ALT/SGPT 20 U/L (12-78); BILIRUBIN,TOTAL 0.2 MG/DL (0.2-1.0); BLOOD UREA NITROGEN 13 MG/DL (7-18); CARBON DIOXIDE LEVEL 26 MEQ/L (21-32); CHLORIDE LEVEL 108 MEQ/L (98-107); CHOLESTEROL LEVEL 246 MG/DL (<200); CHOLESTEROL RISK RATIO 8.482 (<5); CREATININE FOR GFR 1.01 MG/DL (0.55-1.30); GLOMERULAR FILTRATION RATE > 60.0 (>58); GLUCOSE, FASTING 151 MG/DL (70-100); HDL CHOLESTEROL 29 MG/DL (>40); LDL CHOLESTEROL 148 MG/DL (<100); MAGNESIUM LEVEL 1.8 MG/DL (1.8-2.4); NON-HDL-C 217 MG/DL; POTASSIUM SERUM 4.1 MEQ/L (3.5-5.1); SODIUM LEVEL 139 MEQ/L (136-145); THYROID STIMULATING HORMONE 0.836 uIU/ML (0.358-3.740); TOTAL PROTEIN 7.4 GM/DL (6.4-8.2); TRIGLYCERIDES LEVEL 345 MG/DL (<150)
[2022-06-10 13:41] LABS: FREE T3 2.4 PG/ML (2.2-4.0)
== END ==
LOC: M LAB 11:45
PROVIDERS: ATTEND Registered Nurse
DX: F41.1 Generalized anxiety disorder (principal); Z13.220 Encounter for screening for lipoid disorders; K21.9 Gastro-esophageal reflux disease without esophagitis; F33.9 Major depressive disorder, recurrent, unspecified

== ENCOUNTER → 2022-06-28 | Outpatient (CLI) | payer OTHER ==
[2022-06-28 15:43] LABS: HEMOGLOBIN A1c 5.7 %
== END ==
LOC: M LAB 14:15
PROVIDERS: ATTEND Registered Nurse
DX: R73.01 Impaired fasting glucose (principal)

== ENCOUNTER 2022-08-03 16:48 | Emergency (ER) | payer OTHER ==
[2022-08-03 19:06] VITALS: BP 131/68
== END 2022-08-03 19:08 | disposition home or self-care (01) ==
LOC: M ED 16:48
DX: S00.31XA Abrasion of nose, initial encounter (principal); S00.83XA Contusion of other part of head, initial encounter; S06.0X0A Concussion without loss of consciousness, initial encounter; Y04.0XXA Assault by unarmed brawl or fight, initial encounter; Y92.89 Other specified places as the place of occurrence of the external cause; E78.5 Hyperlipidemia, unspecified; F17.200 Nicotine dependence, unspecified, uncomplicated; Z79.899 Other long term (current) drug therapy

== ENCOUNTER → 2022-08-05 | Outpatient (CLI) | payer OTHER | LOC: M WHC 07:57 | PROVIDERS: ATTEND Registered Nurse | DX: Z12.31 Encounter for screening mammogram for malignant neoplasm of breast (principal) ==

== ENCOUNTER → 2023-01-13 | Outpatient (CLI) | payer OTHER | LOC: M LAB 14:47 | PROVIDERS: ATTEND Registered Nurse | DX: Z31.430 Encounter of female for testing for genetic disease carrier status for procreative management (principal) ==

== ENCOUNTER 2023-03-18 07:57 | Day surgery (SDC) | payer OTHER ==
[~2023-03-18] VITALS: Ht 160 cm; Wt 86.2 kg
[~2023-03-18 07:57] MED LIST changes: +BUPR75TA5 PO; +BUSP5TA PO; +LIDOCAINE 2% 100MG/5ML SDV (FOR ANES.) As Ordered ONE; +MIRA3350 PO; +NS 1,000 ML IV ONE; +OMEP40CA4 PO; +SIMV20TA22 PO; +propofoL 200 MG/20 ML VIAL As Ordered ONE
[2023-03-18 10:20] VITALS: BP 107/57
== END 2023-03-18 10:29 | disposition home or self-care (01) ==
LOC: M OPP 07:57
PROVIDERS: ATTEND Internal Medicine Gastroenterology
DX: D12.2 Benign neoplasm of ascending colon (principal); D12.3 Benign neoplasm of transverse colon; K60.2 Anal fissure, unspecified; K57.30 Diverticulosis of large intestine without perforation or abscess without bleeding; K64.8 Other hemorrhoids; K92.1 Melena; Z98.0 Intestinal bypass and anastomosis status; Z79.1 Long term (current) use of non-steroidal anti-inflammatories (NSAID); Z79.899 Other long term (current) drug therapy; F17.299 Nicotine dependence, other tobacco product, with unspecified nicotine-induced disorders

== ENCOUNTER → 2023-03-28 | Outpatient (CLI) | payer OTHER ==
[~2023-03-28] MED LIST changes: -LIDOCAINE 2% 100MG/5ML SDV (FOR ANES.) As Ordered ONE; -NS 1,000 ML IV ONE; +PROHANCE 279.3MG/ML 15ML VIAL As Ordered ONE; +PROHANCE 279.3MG/ML 5ML VIAL As Ordered ONE; -propofoL 200 MG/20 ML VIAL As Ordered ONE
== END ==
LOC: M RAD 14:33
PROVIDERS: ATTEND Surgery
DX: Z15.01 Genetic susceptibility to malignant neoplasm of breast (principal)
CPT/HCPCS: 77049; A9576

== ENCOUNTER → 2023-04-03 | Outpatient (CLI) | payer OTHER ==
[~2023-04-03] MED LIST changes: -PROHANCE 279.3MG/ML 15ML VIAL As Ordered ONE; -PROHANCE 279.3MG/ML 5ML VIAL As Ordered ONE
[2023-04-03 16:56] LABS: APPEARANCE, URINE HAZY (CLEAR); BACTERIA, URINE AUTO NEGATIVE (NEGATIVE); BILIRUBIN, URINE AUTO NEGATIVE (NEGATIVE); BLOOD, URINE BLOOD NEGATIVE (NEGATIVE); COLOR, URINE YELLOW (YELLOW); GLUCOSE, URINE (UA) AUTO NEGATIVE (NEGATIVE); KETONE, URINE AUTO NEGATIVE (NEGATIVE); LEUKOCYTE ESTERASE, URINE AUTO 1+ (NEGATIVE); MUCUS, URINE SMALL (NEGATIVE); NITRITE, URINE AUTO NEGATIVE (NEGATIVE); PROTEIN, URINE AUTO NEGATIVE (NEGATIVE); RBC, URINE AUTO 1 /HPF (0-3); SPECIFIC GRAVITY URINE AUTO 1.026 (1.002-1.035); SQUAMOUS EPITHELIAL CELL UR AU 2 /HPF (0-6); WBC, URINE AUTO 5 /HPF (0-3)
[2023-04-03 17:12] LABS: BASO # 0.1 10^3/uL (0.0-0.2); BASO % 0.7 % (0.0-1.0); EOS # 0.3 10^3/uL (0.0-0.5); EOS % 2.8 % (0.0-3.0); HEMATOCRIT 39.4 % (36.0-47.0); HEMOGLOBIN 13.4 g/dl (12.0-15.5); LYMPH # 2.6 10^3/uL (1.5-5.0); MEAN CORPUSCULAR HEMOGLOBIN 30.6 pg (27.0-33.0); MONO # 0.5 10^3/uL (0.0-0.8); MONO % 5.5 % (2.0-8.0); NEUTROPHILS # 5.6 10^3/uL (1.5-8.5); NEUTROPHILS % 61.8 % (36.0-66.0); PLATELET COUNT, AUTOMATED 194 10^3/uL (150-450); RED BLOOD COUNT 4.38 10^6/uL (4.00-5.40)
[2023-04-03 17:24] LABS: LIPASE 45 U/L (12-53)
[2023-04-03 17:25] LABS: AMYLASE 39 U/L (30-118)
[2023-04-03 17:26] LABS: ALBUMIN 3.5 G/DL (3.2-5.2); ALKALINE PHOSPHATASE 45 U/L (46-116); ALT/SGPT 20 U/L (7.0-40); AST/SGOT 13 U/L (<34); BILIRUBIN,TOTAL 0.3 MG/DL (0.3-1.2); BLOOD UREA NITROGEN 15 MG/DL (9-23); CALCIUM LEVEL 9.7 MG/DL (8.5-10.1); CARBON DIOXIDE LEVEL 30 MMOL/L (20-31); CHLORIDE LEVEL 102 MMOL/L (98-107); CREATININE FOR GFR 0.88 MG/DL (0.55-1.30); GLOMERULAR FILTRATION RATE > 60.0 (>58); GLUCOSE, FASTING 126 MG/DL (60-100); SODIUM LEVEL 139 MMOL/L (136-145); TOTAL PROTEIN 6.9 G/DL (5.7-8.2)
[2023-04-03 17:28] LABS: ERYTHROCYTE SEDIMENTATION RATE 17 mm/hr (0-20)
== END ==
LOC: M LAB 16:07
PROVIDERS: ATTEND Registered Nurse
DX: R10.9 Unspecified abdominal pain (principal); R19.7 Diarrhea, unspecified

== ENCOUNTER → 2023-04-08 | Outpatient (REF) | payer OTHER | LOC: M LAB REF 09:36 | PROVIDERS: ATTEND Registered Nurse | DX: R19.7 Diarrhea, unspecified (principal) ==

== ENCOUNTER → 2023-04-16 | Outpatient (CLI) | payer OTHER ==
[~2023-04-16] MED LIST changes: +GASTROGRAFIN SOLUTION 30ML As Ordered ONE; +ISOVUE-370 76% 100ML VIAL As Ordered ONE
== END ==
LOC: M RAD 14:02
PROVIDERS: ATTEND Registered Nurse
DX: K52.9 Noninfective gastroenteritis and colitis, unspecified (principal)
CPT/HCPCS: 74177; Q9963; Q9967

== ENCOUNTER → 2023-05-22 | Outpatient (CLI) | payer OTHER ==
[~2023-05-22] MED LIST changes: -GASTROGRAFIN SOLUTION 30ML As Ordered ONE; -ISOVUE-370 76% 100ML VIAL As Ordered ONE
[2023-05-22 09:12] LABS: HEMOGLOBIN A1c 5.6 % (4.0-6.0)
[2023-05-22 09:31] LABS: CHOLESTEROL RISK RATIO 5.1 (<5); FREE T3 2.9 PG/ML (2.3-4.2); FREE T4 0.91 NG/DL (0.89-1.76); HDL CHOLESTEROL 37.4 MG/DL (>40); LDL CHOLESTEROL 91.2 MG/DL (<100); MAGNESIUM LEVEL 1.7 MG/DL (1.8-2.4); NON-HDL-C 153.6 MG/DL; THYROID STIMULATING HORMONE 2.232 uIU/ML (0.55-4.78); TOTAL 25(OH) VITAMIN D 64.1 NG/ML (20.0-100.0)
== END ==
LOC: M LAB 08:07
PROVIDERS: ATTEND Registered Nurse
DX: E78.2 Mixed hyperlipidemia (principal); F33.9 Major depressive disorder, recurrent, unspecified; K21.9 Gastro-esophageal reflux disease without esophagitis

== ENCOUNTER 2023-06-24 07:59 | Observation (INO) | payer OTHER ==
[2023-06-24] VITALS (7 sets, daily range): BP systolic 100–111; BP diastolic 50–58; TEMP 97.1–98; O2SAT 96–97
[~2023-06-24] VITALS: Ht 160 cm; Wt 88.5 kg
[~2023-06-24 07:59] MED LIST changes: +FAMO20TA5 PO; +VITA100093 PO; +ZOLO100T PO; +ceFAZolin SOD 2 GM in IV 1 EA IV ONE
[2023-06-24] MEDS ORDERED: LIDOCAINE 2% 100MG/5ML SDV (FOR ANES.) As Ordered ONE (08:17)
[2023-06-24] MEDS ORDERED: ROCURONIUM BROMIDE 50MG/5ML VIAL As Ordered ONE ×2 (08:17→11:58)
[2023-06-24] MEDS ORDERED: propofoL 200 MG/20 ML VIAL As Ordered ONE (08:17)
[2023-06-24] MEDS ORDERED: MIDAZOLAM INJ 2MG/2ML VIAL As Ordered ONE (08:18)
[2023-06-24] MEDS ORDERED: fentaNYL 250 MCG/5 ML INJECTION As Ordered ONE (08:18)
[2023-06-24] MEDS ORDERED: LR 1,000 ML IV SCH ×2 (09:05→15:30)
[2023-06-24] MEDS ORDERED: HEPARIN SOD (PORCINE) 5000UNITS/ML 1ML VIAL/SYRINGE SQ ONE (10:25)
[2023-06-24] MEDS ORDERED: ceFAZolin 2 GM/D5W 50 ML IV BAG As Ordered ONE (11:13)
[2023-06-24] MEDS ORDERED: ACETAMINOPHEN 1000MG 100ML IV BAG As Ordered ONE (11:26)
[2023-06-24] MEDS ORDERED: ePHEDrine SULFATE 25 MG/5 ML(5MG/ML) SYRINGE As Ordered ONE ×2 (11:46→13:59)
[2023-06-24] MEDS ORDERED: ONDANSETRON 4MG 2ML VIAL As Ordered ONE (11:47)
[2023-06-24] MEDS ORDERED: METOCLOPRAMIDE INJ 10MG/2ML VIAL As Ordered ONE (11:47)
[2023-06-24] MEDS ORDERED: DESFLURANE 240 ML INHALANT As Ordered ONE (12:09)
[2023-06-24] MEDS ORDERED: HYDROmorphone HCL 2MG/ML 1ML VIAL As Ordered ONE (13:21)
[2023-06-24] MEDS ORDERED: SUGAMMADEX SODIUM 500 MG/5 ML VIAL (BRIDION) As Ordered ONE (14:44)
[2023-06-24] MEDS ORDERED: SCOPOLAMINE 1MG TRANSDERMAL PATCH As Ordered ONE (14:46)
[2023-06-24] MEDS ORDERED: ONDANSETRON 4MG 2ML VIAL IV PRN ×2 (15:30→15:55)
[2023-06-24] MEDS ORDERED: HYDROMORPHONE HCL 0.5 MG/ 0.5 ML SYRINGE IV PRN (15:30)
[2023-06-24] MEDS: oxyCODONE 5MG TAB PO PRN ×2 (15:46→16:21)
[2023-06-24] MEDS: fentaNYL 100 MCG/2 ML INJECTION IV PRN ×4 (15:46→16:21)
[2023-06-24] MEDS ORDERED: ACETAMINOPHEN TAB 650MG DOSE (2X325MG) PO PRN (15:55)
[2023-06-24] MEDS ORDERED: MORPHINE 2 MG/ML 1ML VIAL IV PRN (15:55)
[2023-06-24] MEDS: LR 1,000 ML IV SCH (17:16)
[2023-06-24] MEDS: ceFAZolin SOD 2 GM in IV 1 EA IV SCH (19:32)
[2023-06-24] MEDS: traMADol 50 MG TAB PO PRN (19:33)
[2023-06-25] VITALS: BP 105/52; TEMP 97.8; O2SAT 95
[2023-06-25] MEDS: traMADol 50 MG TAB PO PRN ×2 (01:34→07:41)
[2023-06-25] MEDS: LR 1,000 ML IV SCH (01:34)
[2023-06-25] MEDS: ceFAZolin SOD 2 GM in IV 1 EA IV SCH (02:56)
[2023-06-25 04:00] VITALS: BP 119/58; TEMP 97.7; O2SAT 97
[2023-06-25 07:44] VITALS: BP 113/56; TEMP 97.9; O2SAT 97
[2023-06-25] MEDS ORDERED: OXYC1CAP PO (08:29)
== END 2023-06-25 12:40 | disposition home or self-care (01) ==
LOC: M SDC 07:59 → M PED 08:00
PROVIDERS: ADMIT Surgery; ATTEND Surgery
DX: Z15.01 Genetic susceptibility to malignant neoplasm of breast (principal); Z85.41 Personal history of malignant neoplasm of cervix uteri
CPT/HCPCS: 19303; 81025; 88307; 96365; 96366; 96375; C9290; J0131; J0665; J0690; J1100; J1170; J2250; J2405; J2765; J3010

== ENCOUNTER → 2023-09-23 | Outpatient (CLI) | payer OTHER ==
[~2023-09-23] MED LIST changes: +OXYC1CAP PO; -ceFAZolin SOD 2 GM in IV 1 EA IV ONE
== END ==
LOC: M WHC 11:58
PROVIDERS: ATTEND Obstetrics & Gynecology Gynecologic Oncology
DX: Z15.01 Genetic susceptibility to malignant neoplasm of breast (principal); Z90.710 Acquired absence of both cervix and uterus; R14.0 Abdominal distension (gaseous)

== ENCOUNTER → 2024-05-18 | Outpatient (CLI) | payer OTHER ==
[~2024-05-18] MED LIST changes: -OXYC1CAP PO; +OXYC1CAP2 PO
[2024-05-18 12:07] LABS: BASO % 0.5 % (0.0-1.0); EOS # 0.1 10^3/uL (0.0-0.5); EOS % 1.7 % (0.0-3.0); HEMOGLOBIN 13.7 g/dl (12.0-15.5); LYMPH # 1.9 10^3/uL (1.5-5.0); LYMPH % 22.9 % (24.0-44.0); MEAN CORPUSCULAR HEMOGLOBIN 29.6 pg (27.0-33.0); MEAN CORPUSCULAR HGB CONC 33.4 g/dl (32.0-36.5); MEAN CORPUSCULAR VOLUME 88.6 fl (80.0-96.0); MONO # 0.5 10^3/uL (0.0-0.8); MONO % 6.2 % (2.0-8.0); NEUTROPHILS # 5.7 10^3/uL (1.5-8.5); NEUTROPHILS % 68.5 % (36.0-66.0); PLATELET COUNT, AUTOMATED 199 10^3/uL (150-450); RED BLOOD COUNT 4.63 10^6/uL (4.00-5.40); WHITE BLOOD COUNT 8.4 10^3/uL (4.0-10.0)
[2024-05-18 12:29] LABS: ALBUMIN 3.7 G/DL (3.2-5.2); ALKALINE PHOSPHATASE 47 U/L (46-116); ALT/SGPT 31 U/L (7.0-40); AST/SGOT 21 U/L (<34); BILIRUBIN,TOTAL 0.4 MG/DL (0.3-1.2); BLOOD UREA NITROGEN 13 MG/DL (9-23); CALCIUM LEVEL 9.4 MG/DL (8.5-10.1); CARBON DIOXIDE LEVEL 28 MMOL/L (20-31); CHLORIDE LEVEL 106 MMOL/L (98-107); CHOLESTEROL LEVEL 195 MG/DL (<200); CHOLESTEROL RISK RATIO 6.15 (<5); CREATININE FOR GFR 0.85 MG/DL (0.55-1.30); FREE T4 0.99 NG/DL (0.89-1.76); GLOMERULAR FILTRATION RATE > 60.0 (>51); GLUCOSE, FASTING 129 MG/DL (60-100); HDL CHOLESTEROL 31.7 MG/DL (>40); LDL CHOLESTEROL 101.9 MG/DL (<100); MAGNESIUM LEVEL 1.8 MG/DL (1.8-2.4); NON-HDL-C 163.3 MG/DL; POTASSIUM SERUM 4.2 MMOL/L (3.5-5.1); SODIUM LEVEL 141 MMOL/L (136-145); THYROID STIMULATING HORMONE 1.277 uIU/ML (0.55-4.78); TOTAL PROTEIN 7.1 G/DL (5.7-8.2); TRIGLYCERIDES LEVEL 307 MG/DL (<150)
[2024-05-18 12:31] LABS: TOTAL 25(OH) VITAMIN D 88.7 NG/ML (20.0-100.0)
[2024-05-18 12:33] LABS: FREE T3 2.9 PG/ML (2.3-4.2)
== END ==
LOC: M LAB 10:32
PROVIDERS: ATTEND Registered Nurse
DX: E78.2 Mixed hyperlipidemia (principal); K21.9 Gastro-esophageal reflux disease without esophagitis; F33.9 Major depressive disorder, recurrent, unspecified

== ENCOUNTER → 2024-08-12 | Outpatient (CLI) | payer OTHER ==
[~2024-08-12] MED LIST changes: +GABA-1635 PO; -GABA800T4 PO
[2024-08-12 11:27] LABS: CHOLESTEROL RISK RATIO 5.35 (<5); LDL CHOLESTEROL 107.6 MG/DL (<100)
== END ==
LOC: M LAB 10:00
PROVIDERS: ATTEND Registered Nurse
DX: R73.9 Hyperglycemia, unspecified (principal)

== ENCOUNTER → 2024-11-10 | Outpatient (CLI) | payer OTHER | LOC: M RAD 10:52 | PROVIDERS: ATTEND Registered Nurse | DX: M25.521 Pain in right elbow (principal) ==

== ENCOUNTER → 2024-11-10 | Outpatient (CLI) | payer OTHER | LOC: M SLEEP HO 10:48 | PROVIDERS: ATTEND Physician Assistant | DX: G47.33 Obstructive sleep apnea (adult) (pediatric) (principal) ==

== ENCOUNTER → 2024-12-16 | Outpatient (REF) | payer OTHER | LOC: M LAB REF 13:03 | PROVIDERS: ATTEND Registered Nurse | DX: R19.7 Diarrhea, unspecified (principal) ==

== ENCOUNTER → 2025-01-11 | Outpatient (CLI) | payer OTHER ==
[~2025-01-11] MED LIST changes: +E-Z-GAS II EFFERVESCENT PACKET (SODIUM BICARB./CITRIC ACID/SIMETHICONE) As Ordered ONE; +E-Z-HD 98% w/w 340GM SUSP BTL As Ordered ONE; +E-Z-PAQUE 96% w/w SUSP 176GM BTL As Ordered ONE
== END ==
LOC: M RAD 09:06
PROVIDERS: ATTEND Registered Nurse
DX: R11.0 Nausea (principal); R93.3 Abnormal findings on diagnostic imaging of other parts of digestive tract

== ENCOUNTER → 2025-07-27 | Outpatient (CLI) | payer OTHER ==
[~2025-07-27] MED LIST changes: -E-Z-GAS II EFFERVESCENT PACKET (SODIUM BICARB./CITRIC ACID/SIMETHICONE) As Ordered ONE; -E-Z-HD 98% w/w 340GM SUSP BTL As Ordered ONE; -E-Z-PAQUE 96% w/w SUSP 176GM BTL As Ordered ONE
[2025-07-27 10:42] LABS: PLATELET COUNT, AUTOMATED 221 10^3/uL (150-450)
[2025-07-27 11:17] LABS: ALT/SGPT 23.0 U/L (7.0-40); AST/SGOT 24.0 U/L (<34); CALCIUM LEVEL 10.1 MG/DL (8.5-10.1); CARBON DIOXIDE LEVEL 30.0 MMOL/L (20-31); CHLORIDE LEVEL 104.0 MMOL/L (98-107); CHOLESTEROL LEVEL 164.0 MG/DL (<200); CHOLESTEROL RISK RATIO 4.61 (<5); CREATININE FOR GFR 1.03 MG/DL (0.55-1.30); GLOMERULAR FILTRATION RATE 65.4 (>51); LDL CHOLESTEROL 94.1 MG/DL (<100); MAGNESIUM LEVEL 1.8 MG/DL (1.8-2.4); NON-HDL-C 128.5 MG/DL; POTASSIUM SERUM 4.6 MMOL/L (3.5-5.1); SODIUM LEVEL 142.0 MMOL/L (136-145); TRIGLYCERIDES LEVEL 172.0 MG/DL (<150)
[2025-07-27 11:18] LABS: TOTAL 25(OH) VITAMIN D 63.3 NG/ML (20.0-100.0)
[2025-07-27 11:19] LABS: FREE T4 1.05 NG/DL (0.89-1.76)
[2025-07-27 12:32] LABS: ESTIMATED AVERAGE GLUCOSE 137.0 MG/DL (60-110)
== END ==
LOC: M LAB 09:35
PROVIDERS: ATTEND Registered Nurse
DX: K21.9 Gastro-esophageal reflux disease without esophagitis (principal); F33.9 Major depressive disorder, recurrent, unspecified; Z13.1 Encounter for screening for diabetes mellitus; R11.0 Nausea; E78.2 Mixed hyperlipidemia

== ENCOUNTER → 2025-08-04 | Outpatient (CLI) | payer OTHER | LOC: M RAD 07:52 | PROVIDERS: ATTEND Registered Nurse | DX: K30 Functional dyspepsia (principal) | CPT/HCPCS: 78264; A9541 ==